=== PATIENT | female | born 1975 | race Caucasian/White ===

== ENCOUNTER 2025-02-16 12:28 | Emergency (ER) | payer BC ==
[~2025-02-16] VITALS: Ht 162.6 cm; Wt 124.7 kg
[2025-02-16 12:53] VITALS: TEMP 98.5
[2025-02-16 14:00] LABS: PLATELET COUNT (AUTO) 352 K/uL (150-450); RED BLOOD CELL COUNT(AUTO) 4.72 MIL/uL (4.0-5.2); RED CELL DISTRIBUTION WIDTH 19.2 % (11.5-15.0); WHITE BLOOD COUNT (AUTO) 8.9 K/uL (4.3-11.0)
[2025-02-16 14:14] LABS: CALCIUM, SERUM 8.4 mg/dL (8.5-10.1); CREATININE 0.8 mg/dL (0.6-1.3); SODIUM SERUM 137 mmol/L (136-145); UREA NITROGEN, BLOOD 4 mg/dL (7-18)
[2025-02-16 14:25] LABS: NT-PRO BNP 17 pg/mL (0-125)
[2025-02-16] MEDS ORDERED: LEVA15HF6 IH (16:23)
[2025-02-16 16:28] VITALS: BP 141/87; O2SAT 97
== END 2025-02-16 16:32 | disposition home or self-care (01) ==
LOC: ER 12:51
DX: R06.02 Shortness of breath (principal); I50.9 Heart failure, unspecified; Z88.2 Allergy status to sulfonamides
CPT/HCPCS: 36415; 71045-TC; 80048-TC; 83735-TC; 83880; 84484-TC; 85025-TC

== ENCOUNTER 2025-02-26 16:22 | Emergency (ER) | payer BC ==
[~2025-02-26] VITALS: Ht 162.6 cm; Wt 136.1 kg
[~2025-02-26 16:22] MED LIST: LEVA15HF6 IH
[2025-02-26 16:37] VITALS: BP 104/83; TEMP 98.1
[2025-02-26] MEDS ORDERED: NAPR-1164 PO (16:49)
[2025-02-26] MEDS ORDERED: PRED20TA PO (16:49)
[2025-02-26 17:32] VITALS: O2SAT 98
== END 2025-02-26 17:32 | disposition home or self-care (01) ==
LOC: EDUNIT# 16:22 → ER 16:34
DX: M65.311 Trigger thumb, right thumb (principal); I11.0 Hypertensive heart disease with heart failure; Z88.2 Allergy status to sulfonamides; Z79.52 Long term (current) use of systemic steroids